=== PATIENT | female | born 1995 | race Caucasian/White ===

== ENCOUNTER 2020-06-06 23:51 | Emergency (ER) | payer SELFPAY ==
[2020-06-07] MEDS ORDERED: AMOXICILLIN/POTASSIUM CLAV 875-125 TABLET PO ONE (00:36)
== END 2020-06-07 00:50 | disposition home or self-care (01) ==
LOC: EDH 23:51
DX: H66.009 Acute suppurative otitis media without spontaneous rupture of ear drum, unspecified ear (principal); R59.9 Enlarged lymph nodes, unspecified; R59.0 Localized enlarged lymph nodes
CPT/HCPCS: 87880